=== PATIENT | female | born 1945 | race Asian ===

== ENCOUNTER 2021-09-21 17:16 | Inpatient (IN) | payer MEDICARE, BC ==
[~2021-09-21] VITALS: Ht 160 cm; Wt 57.7 kg
[2021-09-21 18:31] LABS: GLUCOMETER DEV NAME(LOC) ERT.5; GLUCOSE,POINT OF CARE 93 MG/DL (70-110)
[2021-09-21] MEDS ORDERED: INSLAN SQ (18:32)
[2021-09-21] MEDS ORDERED: MONT-35 PO (18:32)
[2021-09-21] MEDS ORDERED: CHOL500013 PO (18:32)
[2021-09-21] MEDS ORDERED: ATOR20TA86 PO (18:32)
[2021-09-21] MEDS ORDERED: ASCO500 PO (18:32)
[2021-09-21] MEDS ORDERED: ASPI-1444 PO (18:32)
[2021-09-21] MEDS ORDERED: FERR-89 PO (18:32)
[2021-09-21] MEDS ORDERED: EMPA10TA PO (18:32)
[2021-09-21] MEDS ORDERED: LOSA-382 PO (18:32)
[2021-09-21] MEDS ORDERED: SENN-277 PO (18:32)
[2021-09-21] MEDS ORDERED: METF-1211 PO (18:32)
[2021-09-21] MEDS ORDERED: 0.9% SODIUM CHLORIDE 10 ML SYRINGE IVP PRN (18:45)
[2021-09-21 19:07] LABS: COVID AG,FIA SOURCE NASOPHARYNGEAL
[2021-09-21 19:20] LABS: EOSINOPHILS % (AUTO) 4.1 % (1.0-6.0); HEMATOCRIT 34.1 % (36-46); HEMOGLOBIN 11.6 g/dL (12.0-16.0); LYMPHOCYTES # (AUTO) 1.1 K/uL (1.0-4.8); LYMPHOCYTES % (AUTO) 24.3 % (22.0-44.0); MEAN CORPUSCULAR HEMOGLOBIN 31.8 pg (26.0-34.0); MEAN CORPUSCULAR HGB CONC 33.9 G/dL (31.0-37.0); MEAN CORPUSCULAR VOLUME 94 fL (80-100); MONOCYTES # (AUTO) 0.7 K/uL (0.1-1.0); MONOCYTES % (AUTO) 16.1 % (2.0-9.0); NEUTROPHILS # (AUTO) 2.5 K/uL (1.8-7.7); NEUTROPHILS % (AUTO) 54.5 % (40.0-70.0); PLATELET COUNT (AUTO) 256 K/uL (150-450); RED BLOOD CELL COUNT(AUTO) 3.63 MIL/uL (4.00-5.20); RED CELL DISTRIBUTION WIDTH 15.7 % (11.5-14.5)
[2021-09-21 19:25] LABS: ANION GAP 8 mmol/L (8-16); CALCIUM, TOTAL 9.2 mg/dL (8.8-10.5); CARBON DIOXIDE 27 mmol/L (22-29); CHLORIDE 102 mmol/L (98-107); CREATININE 0.88 mg/dL (0.60-1.30); GLUCOSE,RANDOM 110 mg/dL (70-110); SODIUM SERUM 137 mmol/L (136-145); UREA NITROGEN, BLOOD 15 mg/dL (7-18)
[2021-09-21 19:30] LABS: PROTHROMBIN TIME 10.6 SEC (9.4-11.6)
[2021-09-21 19:31] LABS: ALANINE AMINOTRANSFERASE 46 U/L (12-78); ALKALINE PHOSPHATASE 238 U/L (46-116); ASPARTATE AMINOTRANSFERASE 54 U/L (15-37); BILIRUBIN,TOTAL 0.3 mg/dL (0.1-1.0); TOTAL PROTEIN, SERUM 7.7 g/dL (6.4-8.2)
[2021-09-21 19:32] LABS: GLOMERULAR FILTR. RATE CALC > 60 mL/min (>60)
[2021-09-21 19:35] LABS: INFLUENZA TYPE A NEGATIVE FOR TYPE A (NEGATIVE); INFLUENZA TYPE B NEGATIVE FOR TYPE B (NEGATIVE)
[2021-09-21 19:48] LABS: LACTIC ACID 0.8 mmol/L (0.4-2.0)
[2021-09-21 21:10] LABS: APPEARANCE,URINE CLEAR (CLEAR); BILIRUBIN,URINE NEGATIVE (NEGATIVE); GLUCOSE, URINE (UA) >=1000 mg/dL (NEGATIVE); KETONES,URINE 15 mg/dL (NEGATIVE); LEUKOCYTE ESTERASE ,URINE NEGATIVE (NEGATIVE); NITRATE,URINE NEGATIVE (NEGATIVE); OCCULT BLOOD,URINE NEGATIVE (NEGATIVE); PH,URINE 5.5 (5.0-8.0); PROTEIN,URINE NEGATIVE (NEGATIVE); UROBILINOGEN,URINE 0.2 mg/dL (<=1.0)
[2021-09-21 21:23] LABS: AMORPHOUS SEDIMENT,UR Many /LPF (None Seen); BACTERIA,URINE Rare /HPF (None Seen); RBC,URINE 0-2 /HPF (0-2); SQUAMOUS EPITHELIAL CELL,UR Few /LPF (None Seen); WBC,URINE 0-2 /HPF (0-5)
[2021-09-21] MEDS ORDERED: ALBUTEROL SULFATE HFA 90 MCG/PUFF 8 GM INHALER IH ONE (21:45)
[2021-09-21] MEDS ORDERED: ACETAMINOPHEN 650 MG RECTAL SUPPOSITORY PR ONE (21:45)
[2021-09-21] MEDS ORDERED: AZITHROMYCIN 500 MG TABLET PO ONE (21:45)
[2021-09-21] MEDS ORDERED: ACETAMINOPHEN 500 MG TABLET PO ONE (21:45)
[2021-09-21] MEDS ORDERED: BISACODYL 10 MG RECTAL RECTAL SUPPOSITORY PR PRN (23:15)
[2021-09-21] MEDS ORDERED: ONDANSETRON HCL 4 MG/2 ML VIAL IVP PRN (23:15)
[2021-09-21] MEDS ORDERED: ZOLPIDEM TARTRATE 5 MG TABLET PO PRN (23:15)
[2021-09-21] MEDS ORDERED: MORPHINE SULFATE 2 MG/ML SYRINGE IVP PRN (23:15)
[2021-09-21] MEDS ORDERED: MAGNESIUM HYDROXIDE SUSPENSION 30 ML UDCUP PO PRN (23:15)
[2021-09-22 00:26] LABS: GLUCOMETER DEV NAME(LOC) ERT.5; GLUCOSE,POINT OF CARE 126 MG/DL (70-110)
[2021-09-22] MEDS: HEPARIN SODIUM,PORCINE 5,000 UNITS/ML VIAL SQ SCH ×3 (00:35→15:33)
[2021-09-22 05:01] LABS: BASOPHILS % (AUTO) 1.4 % (0.0-2.0); EOSINOPHILS % (AUTO) 1.8 % (1.0-6.0); HEMOGLOBIN 11.8 g/dL (12.0-16.0); LYMPHOCYTES # (AUTO) 1.1 K/uL (1.0-4.8); LYMPHOCYTES % (AUTO) 29.5 % (22.0-44.0); MEAN CORPUSCULAR HEMOGLOBIN 32.3 pg (26.0-34.0); MEAN CORPUSCULAR HGB CONC 34.6 G/dL (31.0-37.0); MEAN CORPUSCULAR VOLUME 93 fL (80-100); MONOCYTES # (AUTO) 0.6 K/uL (0.1-1.0); MONOCYTES % (AUTO) 16.9 % (2.0-9.0); NEUTROPHILS # (AUTO) 1.9 K/uL (1.8-7.7); NEUTROPHILS % (AUTO) 50.4 % (40.0-70.0); PLATELET COUNT (AUTO) 243 K/uL (150-450); RED BLOOD CELL COUNT(AUTO) 3.65 MIL/uL (4.00-5.20); RED CELL DISTRIBUTION WIDTH 15.6 % (11.5-14.5)
[2021-09-22 05:13] LABS: CALCIUM, TOTAL 8.9 mg/dL (8.8-10.5); CREATININE 0.98 mg/dL (0.60-1.30)
[2021-09-22 09:00] VITALS: BP 137/70
[2021-09-22] MEDS: PANTOPRAZOLE SODIUM 40 MG DR TABLET PO SCH (10:06)
[2021-09-22] MEDS: DOCUSATE SODIUM 100 MG CAPSULE PO SCH ×2 (10:06→22:44)
[2021-09-22] MEDS: ACETAMINOPHEN 325 MG TABLET PO PRN (10:07)
[2021-09-22] MEDS ORDERED: DEXTROSE 50%-WATER 25 GM/50 ML SYRINGE IVP PRN (11:30)
[2021-09-22 14:18] LABS: D-DIMER 1.23 mg/L FEU (0.00-0.50)
[2021-09-22 14:34] LABS: C-REACTIVE PROTEIN QUANT 0.9 mg/dL (0.00-0.30)
[2021-09-22 14:46] LABS: GLUCOMETER DEV NAME(LOC) 6S.1; GLUCOSE,POINT OF CARE 118 MG/DL (70-110)
[2021-09-22] MEDS: ASCORBIC ACID 500 MG TABLET PO SCH ×2 (15:33→22:45)
[2021-09-22] MEDS: HYDROCODONE/ACETAMINOPHEN 5-325 MG TABLET PO PRN (15:33)
[2021-09-22 16:06] VITALS: BP 137/69
[2021-09-22 20:05] LABS: GLUCOMETER DEV NAME(LOC) 6S.1; GLUCOSE,POINT OF CARE 129 MG/DL (70-110)
[2021-09-22 20:34] VITALS: BP 141/68
[2021-09-22] MEDS: ZINC SULFATE 220 MG CAPSULE PO SCH (22:44)
[2021-09-22] MEDS: ATORVASTATIN CALCIUM 20 MG TABLET PO SCH (22:44)
[2021-09-22] MEDS: MONTELUKAST SODIUM 10 MG TABLET PO SCH (22:50)
[2021-09-22] MEDS: INSULIN GLARGINE,HUM.REC.ANLOG 100 UNITS/ML SQ SCH (22:52)
[2021-09-23] MEDS: HEPARIN SODIUM,PORCINE 5,000 UNITS/ML VIAL SQ SCH ×3 (00:37→16:17)
[2021-09-23 04:49] VITALS: BP 137/68
[2021-09-23] MEDS: HYDROCODONE/ACETAMINOPHEN 5-325 MG TABLET PO PRN ×4 (05:21→20:38)
[2021-09-23 06:27] LABS: BASOPHILS % (AUTO) 0.5 % (0.0-2.0); EOSINOPHILS % (AUTO) 0 % (1.0-6.0); HEMATOCRIT 34.3 % (36-46); LYMPHOCYTES # (AUTO) 1.4 K/uL (1.0-4.8); MEAN CORPUSCULAR HEMOGLOBIN 32.4 pg (26.0-34.0); MEAN CORPUSCULAR HGB CONC 35.1 G/dL (31.0-37.0); MEAN CORPUSCULAR VOLUME 93 fL (80-100); MONOCYTES # (AUTO) 0.5 K/uL (0.1-1.0); MONOCYTES % (AUTO) 8.7 % (2.0-9.0); NEUTROPHILS # (AUTO) 3.9 K/uL (1.8-7.7); NEUTROPHILS % (AUTO) 66.8 % (40.0-70.0); PLATELET COUNT (AUTO) 251 K/uL (150-450); RED BLOOD CELL COUNT(AUTO) 3.71 MIL/uL (4.00-5.20); RED CELL DISTRIBUTION WIDTH 15.6 % (11.5-14.5)
[2021-09-23 06:53] LABS: CALCIUM, TOTAL 8.3 mg/dL (8.8-10.5); CREATININE 0.98 mg/dL (0.60-1.30); POTASSIUM 4.2 mmol/L (3.5-5.1)
[2021-09-23 07:11] LABS: GLUCOMETER DEV NAME(LOC) 6S.1; GLUCOSE,POINT OF CARE 138 MG/DL (70-110)
[2021-09-23 07:11] LABS: GLUCOMETER DEV NAME(LOC) 6S.1; GLUCOSE,POINT OF CARE 147 MG/DL (70-110)
[2021-09-23 07:30] VITALS: BP 132/52
[2021-09-23] MEDS ORDERED: ASCORBIC ACID 500 MG TABLET PO SCH (09:00)
[2021-09-23] MEDS: ASPIRIN 81 MG DR TABLET PO SCH (09:48)
[2021-09-23] MEDS: CHOLECALCIFEROL (VIT D3) 5,000 [125 MCG] UNITS CAPSULE PO SCH (09:48)
[2021-09-23] MEDS: MetFORMIN HCL 500 MG TABLET PO SCH (09:48)
[2021-09-23] MEDS: DOCUSATE SODIUM 100 MG CAPSULE PO SCH ×2 (09:48→20:39)
[2021-09-23] MEDS: FERROUS SULFATE 325 MG EC TABLET PO SCH (09:49)
[2021-09-23] MEDS: LOSARTAN POTASSIUM 50 MG TABLET PO SCH (09:49)
[2021-09-23] MEDS: ASCORBIC ACID 500 MG TABLET PO SCH ×3 (09:49→20:39)
[2021-09-23] MEDS: PANTOPRAZOLE SODIUM 40 MG DR TABLET PO SCH (09:49)
[2021-09-23] MEDS: ZINC SULFATE 220 MG CAPSULE PO SCH ×2 (09:49→20:39)
[2021-09-23 11:34] VITALS: BP 147/73
[2021-09-23] MEDS: ACETAMINOPHEN 325 MG TABLET PO PRN (12:07)
[2021-09-23 14:01] LABS: GLUCOMETER DEV NAME(LOC) 6N.1; GLUCOSE,POINT OF CARE 116 MG/DL (70-110)
[2021-09-23 16:08] VITALS: BP 114/50
[2021-09-23] MEDS ORDERED: SODIUM CHLORIDE 0.9% 500 ML IV ONE (16:10)
[2021-09-23] MEDS: BENZOCAINE/MENTHOL LOZENGE PO PRN (16:18)
[2021-09-23] MEDS: AZITHROMYCIN 500 MG/NS 250 ML IV SCH (16:19)
[2021-09-23 19:27] VITALS: BP 114/59
[2021-09-23 19:46] LABS: GLUCOMETER DEV NAME(LOC) 6N.1; GLUCOSE,POINT OF CARE 116 MG/DL (70-110)
[2021-09-23] MEDS: INSULIN GLARGINE,HUM.REC.ANLOG 100 UNITS/ML SQ SCH (20:36)
[2021-09-23] MEDS: MONTELUKAST SODIUM 10 MG TABLET PO SCH (20:38)
[2021-09-23] MEDS: ATORVASTATIN CALCIUM 20 MG TABLET PO SCH (20:39)
[2021-09-24] MEDS: HEPARIN SODIUM,PORCINE 5,000 UNITS/ML VIAL SQ SCH ×4 (00:06→23:39)
[2021-09-24] MEDS: BENZOCAINE/MENTHOL LOZENGE PO PRN ×2 (00:48→08:51)
[2021-09-24 01:41] LABS: GLUCOMETER DEV NAME(LOC) 6S.1; GLUCOSE,POINT OF CARE 95 MG/DL (70-110)
[2021-09-24 04:28] VITALS: BP 149/60
[2021-09-24 07:06] LABS: GLUCOMETER DEV NAME(LOC) 6N.1; GLUCOSE,POINT OF CARE 104 MG/DL (70-110)
[2021-09-24 07:54] LABS: BASOPHILS % (AUTO) 0.6 % (0.0-2.0); EOSINOPHILS % (AUTO) 0.1 % (1.0-6.0); HEMATOCRIT 33.8 % (36-46); HEMOGLOBIN 11.8 g/dL (12.0-16.0); LYMPHOCYTES # (AUTO) 1.6 K/uL (1.0-4.8); MEAN CORPUSCULAR HEMOGLOBIN 32.7 pg (26.0-34.0); MEAN CORPUSCULAR VOLUME 94 fL (80-100); MONOCYTES # (AUTO) 0.7 K/uL (0.1-1.0); MONOCYTES % (AUTO) 9.5 % (2.0-9.0); NEUTROPHILS # (AUTO) 5.3 K/uL (1.8-7.7); NEUTROPHILS % (AUTO) 68.8 % (40.0-70.0); PLATELET COUNT (AUTO) 230 K/uL (150-450); RED BLOOD CELL COUNT(AUTO) 3.61 MIL/uL (4.00-5.20); RED CELL DISTRIBUTION WIDTH 15.6 % (11.5-14.5)
[2021-09-24 07:55] LABS: ANION GAP 7 mmol/L (8-16); CALCIUM, TOTAL 8.8 mg/dL (8.8-10.5); CARBON DIOXIDE 28 mmol/L (22-29); CHLORIDE 103 mmol/L (98-107); CREATININE 0.84 mg/dL (0.60-1.30); GLUCOSE,RANDOM 113 mg/dL (70-110); SODIUM SERUM 138 mmol/L (136-145); UREA NITROGEN, BLOOD 20 mg/dL (7-18)
[2021-09-24 08:02] LABS: GLOMERULAR FILTR. RATE CALC > 60 mL/min (>60)
[2021-09-24 08:25] VITALS: BP 154/70
[2021-09-24] MEDS: ZINC SULFATE 220 MG CAPSULE PO SCH ×2 (08:49→20:19)
[2021-09-24] MEDS: DOCUSATE SODIUM 100 MG CAPSULE PO SCH ×2 (08:50→20:19)
[2021-09-24] MEDS: LOSARTAN POTASSIUM 50 MG TABLET PO SCH (08:50)
[2021-09-24] MEDS: ASCORBIC ACID 500 MG TABLET PO SCH ×3 (08:50→20:20)
[2021-09-24] MEDS: MetFORMIN HCL 500 MG TABLET PO SCH (08:50)
[2021-09-24] MEDS: PANTOPRAZOLE SODIUM 40 MG DR TABLET PO SCH (08:50)
[2021-09-24] MEDS: CHOLECALCIFEROL (VIT D3) 5,000 [125 MCG] UNITS CAPSULE PO SCH (08:50)
[2021-09-24] MEDS: ASPIRIN 81 MG DR TABLET PO SCH (08:51)
[2021-09-24] MEDS: FERROUS SULFATE 325 MG EC TABLET PO SCH (08:54)
[2021-09-24] MEDS: INSULIN LISPRO 100 UNITS/ML SQ PRN (11:30)
[2021-09-24] MEDS: AZITHROMYCIN 500 MG/NS 250 ML IV SCH (12:18)
[2021-09-24 15:41] LABS: GLUCOMETER DEV NAME(LOC) 6N.1; GLUCOSE,POINT OF CARE 147 MG/DL (70-110)
[2021-09-24 16:08] VITALS: BP 141/58
[2021-09-24 19:11] LABS: GLUCOMETER DEV NAME(LOC) 6N.1; GLUCOSE,POINT OF CARE 90 MG/DL (70-110)
[2021-09-24] MEDS: MONTELUKAST SODIUM 10 MG TABLET PO SCH (20:20)
[2021-09-24 20:22] VITALS: BP 143/66
[2021-09-24] MEDS: ATORVASTATIN CALCIUM 20 MG TABLET PO SCH (20:29)
[2021-09-24] MEDS: ACETAMINOPHEN 325 MG TABLET PO PRN (20:30)
[2021-09-24] MEDS: INSULIN GLARGINE,HUM.REC.ANLOG 100 UNITS/ML SQ SCH (21:00)
[2021-09-24 22:46] LABS: GLUCOMETER DEV NAME(LOC) 6N.1; GLUCOSE,POINT OF CARE 94 MG/DL (70-110)
[2021-09-24 23:46] VITALS: BP 136/62
[2021-09-25 04:12] VITALS: BP 123/57
[2021-09-25] MEDS: BENZOCAINE/MENTHOL LOZENGE PO PRN (05:24)
[2021-09-25 06:06] LABS: GLUCOMETER DEV NAME(LOC) 6N.1; GLUCOSE,POINT OF CARE 78 MG/DL (70-110)
[2021-09-25 07:19] LABS: CHOL/HDL RATIO 2.4 (3.9-5.7)
[2021-09-25 07:23] LABS: HEMOGLOBIN A1C 6.1 % (3.8-5.6)
[2021-09-25 08:00] VITALS: BP 133/57
[2021-09-25] MEDS ORDERED: MULTIVITAMINS WITH MINERALS, THERAPEUTIC TABLET PO SCH (09:00)
[2021-09-25] MEDS: CHOLECALCIFEROL (VIT D3) 5,000 [125 MCG] UNITS CAPSULE PO SCH (09:22)
[2021-09-25] MEDS: ACETAMINOPHEN 325 MG TABLET PO PRN (09:22)
[2021-09-25] MEDS: ASPIRIN 81 MG DR TABLET PO SCH (09:22)
[2021-09-25] MEDS: HEPARIN SODIUM,PORCINE 5,000 UNITS/ML VIAL SQ SCH ×2 (09:22→16:15)
[2021-09-25] MEDS: FERROUS SULFATE 325 MG EC TABLET PO SCH (09:23)
[2021-09-25] MEDS: LOSARTAN POTASSIUM 50 MG TABLET PO SCH (09:23)
[2021-09-25] MEDS: MetFORMIN HCL 500 MG TABLET PO SCH (09:23)
[2021-09-25] MEDS: PANTOPRAZOLE SODIUM 40 MG DR TABLET PO SCH (09:23)
[2021-09-25] MEDS: ASCORBIC ACID 500 MG TABLET PO SCH ×2 (09:24→16:15)
[2021-09-25] MEDS: ZINC SULFATE 220 MG CAPSULE PO SCH (09:24)
[2021-09-25] MEDS: DOCUSATE SODIUM 100 MG CAPSULE PO SCH (09:53)
[2021-09-25] MEDS: AZITHROMYCIN 500 MG/NS 250 ML IV SCH (12:12)
[2021-09-25] MEDS: INSULIN LISPRO 100 UNITS/ML SQ PRN (12:13)
[2021-09-25 15:56] VITALS: BP 118/62
[2021-09-25 23:41] LABS: GLUCOMETER DEV NAME(LOC) 6S.1; GLUCOSE,POINT OF CARE 155 MG/DL (70-110)
== END 2021-09-25 18:21 | DRG 178 ==
LOC: EMS 17:18 → 6N 09-22 07:46
PROVIDERS: ADMIT Internal Medicine; ATTEND Internal Medicine
DX: U07.1 COVID-19 (principal); J44.0 Chronic obstructive pulmonary disease with (acute) lower respiratory infection; E11.9 Type 2 diabetes mellitus without complications; E78.5 Hyperlipidemia, unspecified; J20.9 Acute bronchitis, unspecified; I10 Essential (primary) hypertension; E78.00 Pure hypercholesterolemia, unspecified; Z96.649 Presence of unspecified artificial hip joint; Z79.899 Other long term (current) drug therapy; Z79.84 Long term (current) use of oral hypoglycemic drugs; Z79.4 Long term (current) use of insulin; Z88.0 Allergy status to penicillin
CPT/HCPCS: 71045; 80048; 80053; 80061; 81001; 82728; 82962; 83036; 83605; 83615; 84145; 84484; 85025; 85379; 85384; 85610; 85730; 86140; 87040; 87804; 93005; 97116; 97163; 97166; 97530; 97535; 99285; J0456; J1644; J1815; J3535; J7040; Q9967; 36415-L1; 36415-TC; U0003